=== PATIENT | female | born 1985 | race Caucasian/White ===

== ENCOUNTER → 2022-10-07 12:15 | Outpatient (CLI) | payer OTHER, MEDICAID, SELFPAY ==
--- NOTE | 2022-10-07 12:24 | DI.RAD.S_ITS ---
PROCEDURE: XR FOOT LT MIN 3V INDICATIONS: Pain in left lower leg TECHNIQUE: 3 views of the foot were acquired. COMPARISON: [facility], CR, XR ANKLE LT MIN 3V, 10/07/2022, 12:34. FINDINGS: Bones: No fractures or dislocations. No suspicious bony lesions. Small plantar calcaneal spur. Soft tissues: No tibiotalar joint effusion. Achilles tendon appears normal. IMPRESSION: No acute osseous abnormality. Small plantar calcaneal spur. Dictated by: Owen Waldron M.D. on 10/07/2022 at 14:11 Approved by: Owen Waldron M.D. on 10/07/2022 at 14:11
--- NOTE | 2022-10-07 12:24 | DI.RAD.S_ITS ---
PROCEDURE: XR ANKLE LT MIN 3V INDICATIONS: Pain in left lower leg TECHNIQUE: 3 views of the ankle were acquired. COMPARISON: [facility], CR, XR FOOT LT MIN 3V, 10/07/2022, 12:34. [facility], CR, XR TIBIA FIBULA LT 2V, 10/07/2022, 12:34. FINDINGS: Bones: No fractures or dislocations. Ankle mortise is normally aligned. No suspicious bony lesions. Small plantar calcaneal spur. Soft tissues: No tibiotalar joint effusion. Achilles tendon appears normal. IMPRESSION: No acute osseous abnormality. Consider further evaluation with MRI of the ankle if clinically indicated. Dictated by: Owen Waldron M.D. on 10/07/2022 at 14:08 Approved by: Owen Waldron M.D. on 10/07/2022 at 14:09
--- NOTE | 2022-10-07 12:24 | DI.RAD.S_ITS ---
PROCEDURE: XR TIBIA FIBULA LT 2V INDICATIONS: Pain in left lower leg TECHNIQUE: 2 views of the tibia and fibula were acquired. COMPARISON: [facility], CR, XR ANKLE LT MIN 3V, 10/07/2022, 12:34. FINDINGS: Bones: No fractures or dislocations. No suspicious bony lesions. Tiny plantar calcaneal spur. Soft tissues: No suspicious soft tissue calcifications or masses. IMPRESSION: No acute osseous abnormality. Dictated by: Owen Waldron M.D. on 10/07/2022 at 14:10 Approved by: Owen Waldron M.D. on 10/07/2022 at 14:10
== END ==
PROVIDERS: Referring Provider Podiatrist Foot & Ankle Surgery; Visit Provider Podiatrist Foot & Ankle Surgery
DX: M79.662 Pain in left lower leg (principal); M77.32 Calcaneal spur, left foot
CPT/HCPCS: 73590; 73610; 73630

== ENCOUNTER 2023-02-28 09:30 | Day surgery (SDC) | payer OTHER, MEDICAID, SELFPAY ==
[2023-02-23 12:23] VITALS: BMI 36.0
--- NOTE | 2023-02-25 17:27 | PM.HP.1 ---
History of Present Illness History of Present Illness Chief complaint: Left Foot Narrative: 37 year old female reports for left foot accessory navicular syndrome. Since last visit, pateint has made strides in weight loss after a health checkup. The overall pain to left foot and ankle has remained stable from supportive shoes and inserts. Nevertheless, patient would like to proceed with surgical intervention for definitive care due to continuous swelling along the inner left foot and ankle leading to chronic pain. Patient denies n/v/f/c/sob/cp. [facility] Medical History (Updated 02/23/23 @ 12:28 by Katrin Monsalve RN) Thyroid disease Surgical History (Updated 02/23/23 @ 12:28 by Katrin Monsalve RN) No history of previous surgery Meds Home Medications and Allergies Home Medications Medication Instructions Recorded Confirmed Type thyroid (pork) 30 mg tablet 30 mg PO DAILY 02/23/23 02/23/23 History ([place] Thyroid) Allergies Allergy/AdvReac Type Severity Reaction Status Date / Time No Known Drug Allergies Allergy Verified 02/23/23 12:28 Exam Skin Other: Localized edema to medial midfoot without signs of infection. Neuro Other: NV intact to both lower extremities. Extrem Other: Mild pain on palpation to left PT tendon insertion with prominent bone present. Mild pain on left single heel raise test. Mild heel valgus and collapse of medial longitudinal arch. Decreased ankle joint dorsiflexion. Assessment & Plan Assessment & Plan narrative: 1. Left foot accessory navicular syndrome. 2. Left foot posterior tibial tendonitis. 3. Left leg equinus. Surgical plan: left posterior tibial tendon detachment, debridement, and re-attachment. Risks and benefits of the procedure discussed with all questions answered to patient's satisfaction. Reviewed potential complications that may include but not limited to the following: DVT, failure to resolve all symptoms, infection, nerve injury, bleeding, recurrence, or wound. Reviewed aftercare protocols. Patient verbalized understanding, agreed with surgical plan, and elected to proceed with no guarantees made. RTC for post-op.
--- NOTE | 2023-02-28 | DI.RAD.S_ITS ---
PROCEDURE: XR FOOT LT 2V INDICATIONS: RECONSTRUCTION POSTERIORTIBIAL TECHNIQUE: 3 views of the foot were acquired. COMPARISON: [facility], , XR FOOT LT MIN 3V, 10/07/2022, 12:34. FINDINGS: Fluoroscopic guidance utilized for foot surgery. Please see postoperative note. IMPRESSION: Fluoroscopic guidance. Dictated by: Nikolas Chan M.D. on 02/28/2023 at 15:04 Approved by: Nikolas Chan M.D. on 02/28/2023 at 15:04
[2023-02-28] MEDS: LACTATED RINGERS 1,000 ML 100 ML IV (09:49)
[2023-02-28 09:58] VITALS: BP 156/90; PULSE 75; RESP 16; TEMP 36.4; O2SAT 95; BMI 35.0
[2023-02-28] MEDS: CEFAZOLIN 2 GM/100 ML PREMIX 100 ML IV (10:52)
--- NOTE | 2023-02-28 11:24 | SUR.OPER ---
Supine on padded OR bed, head on pillow, arms secured on padded arm boards at <90 degrees abduction, legs uncrossed, safety belt at thigh, tape over blanket over lower RIGHT LEG.
[2023-02-28] MEDS: LIDOCAINE 1% 20 ML INJ (11:32)
[2023-02-28 13:34] VITALS: BP 144/81; PULSE 68; RESP 22; TEMP 36.4; O2SAT 96
[2023-02-28 13:39] VITALS: BP 160/65; PULSE 67; RESP 18; O2SAT 95
[2023-02-28 13:44] VITALS: BP 151/72; PULSE 65; RESP 14; O2SAT 98
[2023-02-28 13:47] VITALS: BP 140/67; PULSE 61; RESP 22; TEMP 36.6; O2SAT 95
[2023-02-28 13:54] VITALS: BP 145/75; PULSE 64; RESP 18; O2SAT 95
[2023-02-28] MEDS: OXYCODONE IR 5 MG TABLET PO (14:00)
--- NOTE | 2023-03-01 09:51 | PM.OP.1 ---
Operative Date/Time/Diagnoses Pre-op diagnosis: 1. Left Foot Accessory Navicular Syndrome Post-op diagnosis: same Procedure & Clinicians Procedure: 1. Left Foot Kidner Procedure Same procedure as scheduled: Yes Indications: Chronic swelling and discomfort with left foot. Surgeon: Ricky Lopes Click Yes if Unassisted: Yes Anesthesia Type: General and Peripheral nerve block Operative Notes Findings: Increased bony emienece of navicular and multiple ossicles embedded within tendon. Closure Type: primary Specimen(s): none sent Applied: cast(s) Estimated Blood Loss (mL): 25 Tourniquet time (min): 98 Procedure in detail: Patient was identified, transported into the operating room on a gurney, and transferred onto the operating table. Patient was in supine position. General anesthesia was administered in the operating room. A thigh tourniquet was applied over cast padding on the left lower limb. The surgical limb was prepped and draped in the usual sterile fashion, followed by an official timeout with the entire operating room in agreement. Attention was directed to the medial left foot. Landmarks were identified, and a lazy S incision was made using #15 scalpel at the superior border of posterior tibial tendon over the midfoot. Dissection was carried out from skin down to the bone in layers and with attention to protect neurovascular structures. The periosteum was lifted off the prominent accessory navicular, and an osteotomy was used to excise to margin of anatomical size and alignment. Further evaluation of the posterior tibial tendon posterior reveals multiple ossicles embedded within and along the structure, which were sharply excised using #15 scalpel, rongeur, and hemostat. Decision was made to implant two suture anchors with Arthrex 4.75 mm DX Knotless SwiveLock and 3.0 mm DX Knotless SutureTak into the medial aspect of navicular. The sutures were passed through the tendon and tied down with the foot held in plantarflexion and inversion. The surgical site was irrigated copiously using saline. Tourniquet was released. The remaining deep structures were reapproximated in layers using 2-0, 3-0, 4-0 vicryls and 3-0 nylon. Surgical foot was wahsed and dried. Sterile dressing applied using betadine soaked Adaptic, gauze, abodminal pad, and Kerlix. Cast padding was applied to entire left lower leg, followed by molding of posterior splint secured by elastic bandages. Patient tolerated procedure without complication and was transferred to PACU hemodynamically stable. Post-operative Condition: stable Disposition: same day surgery Plan for aftercare: NWB to surgical limb. Keep dressing clean, dry, and intact. Elevate surgical limb above heart. Ice behind knee 15 min/hr when awake. Return visit on Tuesday03/07/23.
== END 2023-02-28 14:33 | disposition home or self-care (01) ==
PROVIDERS: Referring Provider Podiatrist Foot & Ankle Surgery; Visit Provider Podiatrist Foot & Ankle Surgery
PROC: (CPT 27687; principal; 2023-02-28 10:45)
DX: M76.822 Posterior tibial tendinitis, left leg (principal); M21.6X2 Other acquired deformities of left foot; M62.462 Contracture of muscle, left lower leg
CPT/HCPCS: 28238; 64450; 73620; 76000; C1776; J0690; J2250; J2704; J3010

== ENCOUNTER → 2023-05-19 10:13 | Outpatient (CLI) | payer OTHER, MEDICAID, SELFPAY ==
--- NOTE | 2023-05-19 10:17 | DI.RAD.S_ITS ---
PROCEDURE: XR FOOT RT MIN 3V INDICATIONS: DEFORMITIES OF FEET, ACCESSORY NAVICULAR TECHNIQUE: 3 views of the foot were acquired. Weight bearing. COMPARISON: [facility], CR, XR FOOT LT MIN 3V, 10/07/2022, 12:34. [facility], CR, XR FOOT LT 2V, 02/28/2023, 11:21. FINDINGS: Bones: No fractures or dislocations. Prominent navicular bone at the medial aspect. No suspicious bony lesions. Soft tissues: No tibiotalar joint effusion. Achilles tendon appears normal. IMPRESSION: Prominent navicular bone. Dictated by: Owen Waldron M.D. on 05/19/2023 at 16:22 Approved by: Owen Waldron M.D. on 05/19/2023 at 16:26
--- NOTE | 2023-05-19 10:17 | DI.RAD.S_ITS ---
PROCEDURE: XR FOOT LT MIN 3V INDICATIONS: DEFORMITIES OF FEET, ACCESSORY NAVICULAR TECHNIQUE: 3 views of the foot were acquired. COMPARISON: [facility], CR, XR FOOT LT MIN 3V, 10/07/2022, 12:34. [facility], CR, XR FOOT LT 2V, 02/28/2023, 11:21. FINDINGS: Bones: Postsurgical change at the medial navicular bone. No fractures or dislocations. No suspicious bony lesions. Tiny calcaneal spur. Soft tissues: No tibiotalar joint effusion. Achilles tendon appears normal. IMPRESSION: Medial navicular osteotomy. Dictated by: Owen Waldron M.D. on 05/19/2023 at 16:26 Approved by: Owen Waldron M.D. on 05/19/2023 at 16:28
== END ==
PROVIDERS: PCP Naturopath; Referring Provider Podiatrist Foot & Ankle Surgery; Visit Provider Podiatrist Foot & Ankle Surgery
DX: Q66.89 Other specified congenital deformities of feet (principal); Z47.89 Encounter for other orthopedic aftercare
CPT/HCPCS: 73630